=== PATIENT | male | born 1970 | race Caucasian/White ===

== ENCOUNTER 2021-11-30 20:18 | Emergency (ER) | payer SELFPAY ==
[2021-11-30 21:50] LABS: HEMOGLOBIN 15.6 gm/dl (14.0-17.5); RED BLOOD COUNT 5.02 M/UL (4.20-5.50); WHITE BLOOD COUNT 10.5 K/UL (4.5-11.0)
== END 2021-11-30 23:00 | disposition home or self-care (01) ==
LOC: ER1 20:18
PROVIDERS: Physician Assistant
DX: H53.2 Diplopia (principal); F17.210 Nicotine dependence, cigarettes, uncomplicated; Z88.8 Allergy status to other drugs, medicaments and biological substances
CPT/HCPCS: 70450; 85025; 99283; Q9967; U0002

== ENCOUNTER → 2022-06-15 | Outpatient (CLI) | payer OTHER | LOC: KOH-I 15:05 | DX: M79.641 Pain in right hand (principal); M19.041 Primary osteoarthritis, right hand | CPT/HCPCS: 73110; 73130 ==